=== PATIENT | female | born 1995 | race Caucasian/White ===

== ENCOUNTER 2017-09-29 20:30 | Emergency (ER) | payer BC ==
[2017-09-29 21:37] LABS: ABSOLUTE BASOPHILS # (AUTO) 0.1 10^3/uL (0.0-0.2); ABSOLUTE EOSINOPHILS # (AUTO) 0.1 10^3/uL (0.0-0.6); ABSOLUTE LYMPHOCYTES (AUTO) 1.6 10^3/uL (0.5-4.7); ABSOLUTE MONOCYTES (AUTO) 0.8 10^3/uL (0.1-1.4); ABSOLUTE NEUT (AUTO) 7.4 10^3/uL (1.7-8.2); BASOPHILS % (AUTO) 0.8 % (0-2); HEMATOCRIT 45.1 % (36.0-47.0); HEMOGLOBIN 15.5 g/dL (12.0-15.5); HGB HCT DIFFERENCE 1.4; LYMPHOCYTES % (AUTO) 16.1 % (13-45); MEAN CORPUSCULAR HEMOGLOBIN 31.7 pg (27.0-33.4); MEAN CORPUSCULAR HGB CONC 34.3 g/dL (32.0-36.0); MEAN CORPUSCULAR VOLUME 92 fl (80-97); MONOCYTES % (AUTO) 8.4 % (3-13); RED BLOOD COUNT 4.89 10^6/uL (3.72-5.28); RED CELL DISTRIBUTION WIDTH 13.6 % (11.5-14.0); SEGMENTED NEUTROPHILS % (AUTO) 73.7 % (42-78)
--- NOTE | 2017-09-29 21:38 | ER Document Report ---
HPI - HPI Pain Level: 3 Notes: Patient is a 22-year-old female who presents the ED complaining of swelling, redness, pain to the left cheek with possible abscess. Patient states that it started developing 2 days ago. Patient states that she does have pain to the left cheek, and denies any history of MRSA. She still eating and drinking without difficulties. She still urinating normally and having normal bowel movements. She denies any drug allergies. Patient states that she did go through renal failure from an overdose 3 months ago, but has not had any issues with her kidney since then. Patient states that she was supposed to have recheck of blood work, but did not have that performed. No other concerns or complaints at this time. Patient denies any known insect bite. Denies any headache, fever, head injury, neck pain, URI, sore throat, chest pain, palpitations, syncope, cough, shortness of breath, wheeze, dyspnea, abdominal pain, nausea/vomiting/diarrhea. - ROS Notes: REVIEW OF SYSTEMS: CONSTITUTIONAL : Denies fever, chills, or sweats. Denies recent illness. EENT: Denies eye, ear, throat, or mouth pain or symptoms. Denies nasal or sinus congestion or discharge. Denies throat, tongue, or mouth swelling or difficulty swallowing. CARDIOVASCULAR: Denies chest pain. Denies palpitations or racing or irregular heart beat. RESPIRATORY: Denies cough, cold, or chest congestion. Denies shortness of breath, difficulty breathing, or wheezing. GASTROINTESTINAL: Denies abdominal pain or distention. Denies nausea, vomiting , or diarrhea. GENITOURINARY: Denies difficulty urinating, painful urination, burning, frequency, blood in urine, or discharge. MUSCULOSKELETAL: Denies back or neck pain or stiffness. Denies joint pain or swelling. SKIN: see hpi NEUROLOGICAL: Denies confusion or altered mental status. Denies passing out or loss of consciousness. Denies dizziness or lightheadedness. Denies headache. Denies weakness or paralysis or loss of use of either side. Denies problems with gait or speech. Denies sensory loss, numbness, or tingling. ALL OTHER SYSTEMS REVIEWED AND NEGATIVE. Dictation was performed using [employer] voice recognition software - CONSTITUTIONAL Constitutional: DENIES: Fever, Chills - EENT EENT: DENIES: Sore Throat, Ear Pain, Eye problems - NEURO Neurology: DENIES: Headache, Weakness, Vision blurred, Dizzinesss / Vertigo - CARDIOVASCULAR Cardiovascular: DENIES: Chest pain - RESPIRATORY Respiratory: DENIES: Trouble Breathing, Coughing - GASTROINTESTINAL Gastrointestinal: DENIES: Abdominal Pain, Black / Bloody Stools - URINARY Urinary: DENIES: Dysuria, Urgency, Frequency - REPRODUCTIVE Reproductive: DENIES: :, Postmenopausal, Abnormal bleeding / discharge - MUSCULOSKELETAL Musculoskeletal: DENIES: Extremity pain Past Medical History - Social History Smoking Status: Current Every Day Smoker Chew tobacco use (# tins/day): No Frequency of alcohol use: None Drug Abuse: None Family History: Reviewed & Not Pertinent Patient has suicidal ideation: No Patient has homicidal ideation: No Renal/ Medical History: Denies: Hx Peritoneal Dialysis Vertical Provider Document - CONSTITUTIONAL Agree With Documented VS: Yes Notes: PHYSICAL EXAMINATION: GENERAL: Well-appearing, well-nourished and in no acute distress. HEAD: Atraumatic, normocephalic. EYES: Pupils equal round and reactive to light, extraocular movements intact, sclera anicteric, conjunctiva are normal. ENT: EAC clear b/l. TM's intact b/l without erythema, fluid, or perforation. Nares patent and without discharge. oropharynx clear without exudates. No tonsilar hypertrophy or erythema. Moist mucous membranes. No sinus tenderness. Face: + erythema, mild induration, and very small pinpoint abscess noted. + tenderness. No jaw bone tenderness or zygomatic tenderness. NECK: Normal range of motion, supple without lymphadenopathy. No rigidity/ meningismus. LUNGS: Breath sounds clear to auscultation bilaterally and equal. No wheezes rales or rhonchi. HEART: Regular rate and rhythm without murmurs, rubs, gallops. Extremities: No cyanosis, clubbing, or edema b/l. Peripheral pulses 2+. Capillary refill less than 3 seconds. NEUROLOGICAL: Cranial nerves grossly intact. Normal speech, normal gait. Normal sensory, motor exams PSYCH: Normal mood, normal affect. SKIN: see face exam. Warm, Dry, normal turgor, no rashes or lesions noted. - INFECTION CONTROL TRAVEL OUTSIDE OF THE [place] IN LAST 30 DAYS: No - RESPIRATORY O2 Sat by Pulse Oximetry: 100 Course - Re-evaluation Re-evalutation: 09/29/17 22:38 Patient is an afebrile, well-hydrated, 22-year-old female who presents to the ED with cellulitis and very small abscess to the left cheek. Vitals are stable. PE is otherwise unremarkable. CBC, BMP unremarkable. I did offer incision and drainage, but patient declined as she has to go to work and does not want a hole in her face. Advised patient that we will do a trial with Keflex and Bactrim. A wound culture was obtained today status post small puncture wound with a 22-gauge needle to the small abscess. Advised patient that she will need to monitor symptoms closely and recheck with the general surgeon in 1 week. Recheck with your PCM next week as well. Return to the ED with any worsening/concerning symptoms otherwise as reviewed in discharge. Patient is in agreement. - Vital Signs Vital signs: Temp Pulse Resp BP Pulse Ox 98.6 F 107 H 16 150/90 H 100 09/29/17 20:50 09/29/17 20:50 09/29/17 20:50 09/29/17 20:50 09/29/17 20:50 - Laboratory Result Diagrams: 09/29/17 21:25 09/29/17 21:25 Procedures - Incision and Drainage Left Face Time completed: 19:35 Type: Simple I&D procedure: Sterile dressing applied, Other - iodine and alcohol swabs Incision Method: Incision made with needle Amount/type of drainage: scant purulent, bloody Notes: 09/29/17 21:40 pt tolerated procedure well no complications wound dressing placed Discharge - Discharge Clinical Impression: Cellulitis of face Condition: Stable Disposition: HOME, SELF-CARE Instructions: Cellulitis ([facility]) Additional Instructions: Keep the skin clean and wash with soap and water Apply triple antibiotic ointment daily Tylenol/ibuprofen if needed take antibiotics as directed Recheck with the general surgeon in 1 week Recheck with your PCM next week as well Return to the ED with any worsening symptoms and/or development of fever, headache, chest pain, palpitations, syncope, shortness of breath, trouble breathing, abdominal pain, n/v/d, blood in stool/urine, worsening abscess, cellulitis, red streaks, purulent discharge, or other worsening symptoms that are concerning to you. Prescriptions: Cephalexin Monohydrate [Keflex 500 mg Capsule] 500 mg PO BID #20 capsule Sulfamethoxazole/Trimethoprim [Bactrim Ds Tablet] 1 each PO BID #20 tablet Forms: Elevated Blood Pressure Referrals: OWEN LATHAM MD [ACTIVE STAFF] - Follow up in 1 week
[2017-09-29 21:59] LABS: ANION GAP 12 (5-19); BLOOD UREA NITROGEN 13 mg/dL (7-20); CALCIUM 9.5 mg/dL (8.4-10.2); CARBON DIOXIDE 27 mmol/L (22-30); CHLORIDE 105 mmol/L (98-107); GLUCOSE 80 mg/dL (75-110); POTASSIUM 4.2 mmol/L (3.6-5.0)
[2017-09-29] MEDS ORDERED: CEPHALEXIN 500 MG CAPSULE PO ONE (22:52)
[2017-09-29] MEDS ORDERED: SULFAMETHOXAZOLE/TRIMETHOPRIM 800-160 MG TABLET PO ONE (22:52)
[2017-09-29 23:02] VITALS: BP 124/80
== END 2017-09-29 23:04 | disposition home or self-care (01) ==
LOC: ER 20:30
DX: L03.211 Cellulitis of face (principal); L02.01 Cutaneous abscess of face; F17.200 Nicotine dependence, unspecified, uncomplicated
CPT/HCPCS: 36415; 80048; 85025; 87070; 87077; 87186; 87205; 99283

== ENCOUNTER 2018-12-15 22:24 | Emergency (ER) | payer BC ==
[2018-12-15 23:08] VITALS: BP 140/90
--- NOTE | 2018-12-15 23:27 | ER Document Report ---
ED Medical Screen (RME) - General Chief Complaint: Dental Injury Stated Complaint: TOOTHACHE Time Seen by Provider: 12/15/18 23:25 Mode of Arrival: Ambulatory Information source: Patient Notes: 23-year-old female presented to ED for a dental pain to her right lower wisdom tooth. She states that a large piece broke off just before coming to the emergency room. She states that the pieces have been broken off of it for the last several days. She states the pain is much worse after this large piece broke off. She states she just closed her mouth and she felt the pieces break off. She is alert oriented respirations regular and unlabored speaking in full sentences walk with a even steady gait. I have greeted and performed a rapid initial assessment of this patient. A comprehensive ED assessment and evaluation of the patient, analysis of test results and completion of medical decision making process will be conducted by an additional ED providers. TRAVEL OUTSIDE OF THE [place] IN LAST 30 DAYS: No Past Medical History Renal/ Medical History: Denies: Hx Peritoneal Dialysis Physical Exam - Vital signs Vitals: Temp Pulse Resp BP Pulse Ox 98.1 F 59 L 18 140/90 H 99 12/15/18 23:07 12/15/18 23:07 12/15/18 23:07 12/15/18 23:07 12/15/18 23:07 Course - Vital Signs Vital signs: Temp Pulse Resp BP Pulse Ox 98.1 F 59 L 18 140/90 H 99 12/15/18 23:07 12/15/18 23:07 12/15/18 23:07 12/15/18 23:07 12/15/18 23:07
== END 2018-12-16 01:21 | disposition left against medical advice (07) ==
LOC: ER 22:24
DX: K08.89 Other specified disorders of teeth and supporting structures (principal)
CPT/HCPCS: 99282